=== PATIENT | male | born 1970 | race Two or more races ===

== ENCOUNTER 2024-08-21 16:43 | Emergency (ER) | payer OTHER, SELFPAY ==
[2024-08-21 17:08] VITALS: BP 137/93; PULSE 97; RESP 20; TEMP 38.3; O2SAT 97
--- NOTE | 2024-08-21 17:31 | PD.EDRME ---
Rapid Medical Screening Exam RME Arrival date/time: 08/21/24 16:43 53-year-old male presents to the emergency department complains of cough, congestion and fever ongoing x 5 days Chief Complaint: Flu Like Symptoms Time Seen by Provider: 08/21/24 16:52 Vital signs: Vital Signs Temperature 101.0 F H 08/21/24 17:08 Pulse Rate 97 08/21/24 17:08 Respiratory Rate 20 08/21/24 17:08 Blood Pressure 137/93 H 08/21/24 17:08 Pulse Oximetry (%) 97 08/21/24 17:08 Oxygen Delivery Method Room Air 08/21/24 17:08
--- NOTE | 2024-08-21 17:32 | XR_ITS ---
Examination: PA lateral chest 2 views Technique: Upright PA lateral chest 2 views Exam date and time: August 12, 1999 2517.5 hours Indications: Coughing beginning 5 days ago. Findings: Early pneumonia in the lingular segment left upper lobe Normal heart size No pulmonary edema Impression: Early pneumonia in the lingular segment left upper lobe
[2024-08-21] MEDS: IBUPROFEN TAB 400 MG TABLET 800 MG PO (17:45)
--- NOTE | 2024-08-21 18:23 | EDNOTE_ITS ---
Upper Respiratory Inf. RME/HPI General Chief Complaint: Flu Like Symptoms Stated Complaint: FEVER, BODY ACHES X3 DAYS Time Seen by Provider: 08/21/24 16:52 Arrival date/time: 08/21/24 16:43 This is a 53-year-old male presents to the emergency department complains of cough, congestion and fever ongoing x 5 days. Limitations: no limitations RME / HPI RME / HPI Narrative: 08/21/24 16:43 53-year-old male presents to the emergency department complains of cough, congestion and fever ongoing x 5 days Related Data Previous Rx's ?Medication ?Instructions ?Recorded azithromycin 250 mg tablet See Rx Instructions PO .COMPLEX #6 08/21/24 tabs ibuprofen 800 mg tablet 800 mg PO Q6H PRN pain #10 tabs 08/21/24 Allergies Allergy/AdvReac Type Severity Reaction Status Date / Time No Known Allergies Allergy Verified 08/21/24 16:46 Review of Systems Review of Systems Systems Reviewed: All systems reviewed, normal except as documented Past Medical History Past Medical History Comments PMH COMMENT: Denies ED Exam General Limitations: Present no limitations General appearance: Present alert and in no apparent distress Head Head exam: Present atraumatic Eye Eye exam: Present normal appearance, PERRL and EOMI ENT ENT exam: Present normal exam, normal oropharynx and mucous membranes moist Neck Neck exam: Present normal inspection, full ROM and trachea midline Chest Chest inspection: Present normal inspection and symmetric chest wall rise Respiratory Respiratory exam: Present normal lung sounds bilaterally Cardiovascular Cardiovascular exam: Present regular rate, normal rhythm and normal heart sounds Abdominal Exam Abdominal exam: Present soft Extremities Exam Extremities exam: Present normal inspection and full ROM Back Exam Back exam: Present normal inspection and full ROM Neurological Exam Neurological exam: Present alert, oriented X3 and CN II-XII intact Psychiatric Psychiatric exam: Present normal affect and normal mood Skin Skin exam: Present warm, dry, intact and normal color Course Quality Measures none Orders Category Date Time Status Bedside Influenza A&B Antigen Test NOW Care 08/21/24 17:29 Completed XR chest 2V Stat Exams 08/21/24 17:32 Completed Ibuprofen Tab [Motrin Tab] Med 08/21/24 17:29 Discontinued 800 mg PO X1 ONE cefTRIAXone [Rocephin] 1,000 mg Med 08/21/24 18:25 Discontinued Lidocaine 1% 20 ml [Xylocaine 1% 20 ML] 2.1 ml IM X1 Vital Signs Vital signs: Vital Signs Temperature 101.0 F H 08/21/24 17:08 Pulse Rate 97 08/21/24 17:08 Respiratory Rate 20 08/21/24 17:08 Blood Pressure 137/93 H 08/21/24 17:08 Pulse Oximetry (%) 97 08/21/24 17:08 Oxygen Delivery Method Room Air 08/21/24 17:08 Upper Respiratory Infection MDM Narrative MDM Narrative:: Labs patient was positive for influenza B. chest x ray: Findings: Early pneumonia in the lingular segment left upper lobe Normal heart size No pulmonary edema Impression: Early pneumonia in the lingular segment left upper lobe Patient given a dose of Rocephin because chest x-ray shows early pneumonia. I spoke to patient at length patient is to follow-up with primary provider in 1 to 2 days. Come back to the emergency room if symptoms change or worsen Patient data External records reviewed:: [facility] previous records Clinical information provided by:: patient Social determinants that could affect healthcare access:: none Patient has the following chronic illnesses:: none How is presenting disease/condition affected by chronic disease/condition?: no chronic disease Evaluation data The following diagnostics were reviewed and interpreted by me:: lab results and radiology exam(s) Lab and/or radiology exams considered but not ordered:: none Interpretation Summary: See note Medications / Prescriptions Medications or Prescriptions considered but not ordered:: None Medication administrations:: Medication Administration History Discontinued Medications Ceftriaxone Sodium 1,000 mg/ (Lidocaine HCl 2.1 ml) 0 mg IM X1 ONE Stop: 08/21/24 18:26 Last Admin: 08/21/24 19:12 Dose: 1,000 mg Documented By: BILLIE Ibuprofen (Ibuprofen Tab 400 Mg Tablet) 800 mg PO X1 ONE Stop: 08/21/24 17:30 Last Admin: 08/21/24 17:45 Dose: 800 mg Documented By: BILLIE See [facility] Consultations Consultation(s) initiated? (list below): No Diagnosis Upper Respiratory Differential Diagnosis: upper respiratory infection, viral infection, influenza and other (Pneumonia) Most likely diagnosis given after review of the tests above:: Pneumonia Admission Indicated Admission indicated?: not indicated Admission Request Was there a request for admission?: No Disposition Plan Disposition Plan: Discharge Discharge Attestation Discharge Attestation: The patient and all family members were given an opportunity to ask questions and understood the discharge instructions. Discharge instructions specifically effects, indications for sooner follow up or return to the emergency department, and the expected course of current diagnosis. Patient condition: Stable Discharge Plan Plan Patient Disposition: HOME (Self Care) Patient condition on transfer: Stable Prescriptions/Referrals Prescriptions/Med Rec: New azithromycin 250 mg tablet See Rx Instructions .ROUTE .COMPLEX Qty: 6 0RF Rx Instructions: For 250 mg dose pack: take 500 mg today (day 1), then 250 mg for 4 days (days 2-5) ibuprofen 800 mg tablet 800 mg PO Q6H PRN (Reason: pain) Qty: 10 0RF Referrals: No Primary/Family,Physician [Primary Care Provider] - In 1 week Problem List Clinical Impression: Influenza, Pneumonia Patient/Caregiver Discharge Instructions Discharge Activity: activity as tolerated Education Materials: The Flu (Influenza), ED Pneumonia (Adult) Additional Instructions: Follow up with primary provider in 1-2 days. Come back to ED if symptoms change or worsen Print Language: Ukrainian Stand Alone Forms: [employer] Award Info., Patient Portal Info Letter PA/EMERGENCY MANAGEMENT SYSTEM DIRECTOR Supervising Physician JOSEFINA/EMILIA Supervising Physician: robb
[2024-08-21 19:11] VITALS: TEMP 37.4
[2024-08-21] MEDS: cefTRIAXone 1,000 MG, LIDOCAINE 1% 20 ML 2.1 ML IM (19:12)
== END 2024-08-21 19:22 | disposition home or self-care (01) ==
PROVIDERS: Emergency Provider Emergency Medicine
DX: J11.00 Influenza due to unidentified influenza virus with unspecified type of pneumonia (principal)
CPT/HCPCS: 71046; 87400; 96372; 99283; J0696; J3490; A9270